=== PATIENT | male | born 1970 | race Two or more races ===

== ENCOUNTER 2024-02-14 03:37 | Emergency (ER) | payer MEDICAID, OTHER ==
[~2024-02-14] VITALS: Ht 154.9 cm; Wt 86.4 kg
[2024-02-14 03:50] VITALS: BP 124/78; PULSE 76; RESP 18; O2SAT 98
[2024-02-14] MEDS ORDERED: IBUP-1456 PO (04:33)
[2024-02-14] MEDS ORDERED: AZIT-43 PO (04:33)
[2024-02-14] MEDS ORDERED: PRED20TA2 PO (04:33)
== END 2024-02-14 05:00 | disposition home or self-care (01) ==
LOC: ER 03:40
DX: J20.9 Acute bronchitis, unspecified (principal)